=== PATIENT | female | born 1980 | race Caucasian/White ===

== ENCOUNTER 2022-10-05 00:06 | Emergency (ER) | payer OTHER, SELFPAY ==
[2022-10-05] VITALS (11 sets, daily range): BP systolic 156–173; BP diastolic 105–111; PULSE 82–99; RESP 18–20; TEMP 36.6–36.8; O2SAT 95–97; BMI 30.8
[2022-10-05] MEDS: OXYCODONE 5 MG TABLET PO (00:42)
--- NOTE | 2022-10-05 00:43 | ED.GENADULT ---
HPI - General Adult General Chief complaint: Sore Throat Stated complaint: Throat/neck pain Time Seen by Provider: 10/05/22 00:24 Source: patient Mode of arrival: ambulatory Limitations: no limitations History of Present Illness HPI narrative: 42-year-old female presents to the emergency department with a 4 day history of sore throat, loss of voice. No fever. Exposure to pneumonia in her son, he was diagnosed 10 days ago. No COVID, strep or other similar illness. She has been using Tylenol and ibuprofen with limited improvement in her symptoms, last being 4 hours ago. Pain is bilateral, symmetric. No hives or rash, no productive cough or upper respiratory symptoms. No GI or other systemic signs of illness. Notes swollen glands, painful to swallow but is still taking nutrition appropriately. Nursing notes reviewed. Has not tried any other interventions to help with symptoms. No blisters or ulcerations. She states that her past medical history is benign, no major long-term health problems. Surgical history notable for oophorectomy, hysterectomy. No long-term medications, no allergies. Socially she is nonsmoker with no pertinent travel. Family history notable for pneumonia in her child 10 days ago. ROS is notable for the generalized and HEENT symptoms as described above, otherwise denies times 12 systems Related Data Previous Rx's Medication Instructions Recorded prednisone 20 mg tablet 20 mg PO BID #6 tabs 10/05/22 PFSH PFSH Social History Smoking Status: Former smoker Do you use any of these nicotine containing products: None Second hand tobacco smoke exposure: No How often do you have a drink containing alcohol: 4 or more times a week How many standard drinks containing alcohol do you have on a typical day: 1 or 2 How often do you have six or more drinks on one occasion: Less than monthly AUDIT-C Alcohol total score: 5 Non-prescribed substance use: denies use Exam Const: Vital Signs, click to edit/add: Vital Signs - 24 hr 10/05/22 00:11 10/05/22 00:24 10/05/22 00:30 Temperature 98.3 F Pulse Rate 88 87 Pulse Rate [Left P ulse Oximeter] 99 Respiratory Rate 20 Blood Pressure Blood Pressure [Le ft Upper Arm] 173/111 H Pulse Oximetry 95 95 95 Oxygen Delivery Me thod Room Air 10/05/22 00:46 10/05/22 00:53 10/05/22 00:54 Temperature Pulse Rate 86 82 84 Pulse Rate [Left P ulse Oximeter] Respiratory Rate 18 Blood Pressure 157/109 H Blood Pressure [Le ft Upper Arm] Pulse Oximetry 96 96 96 Oxygen Delivery Me thod 10/05/22 01:00 10/05/22 01:01 10/05/22 01:15 Temperature Pulse Rate 84 84 84 Pulse Rate [Left P ulse Oximeter] Respiratory Rate Blood Pressure 156/105 H Blood Pressure [Le ft Upper Arm] Pulse Oximetry 97 96 96 Oxygen Delivery Me thod 10/05/22 01:30 Temperature Pulse Rate 86 Pulse Rate [Left P ulse Oximeter] Respiratory Rate Blood Pressure Blood Pressure [Le ft Upper Arm] Pulse Oximetry 97 Oxygen Delivery Me thod Documenting provider has reviewed patient's vital signs: yes Common normals: no apparent distress General appearance: comfortable and well kempt Other: Appears well-nourished, well-hydrated. Non diaphoretic. HENMT: Common normals: normocephalic, head/scalp atraumatic and TM's normal bilaterally Head and scalp: normocephalic and atraumatic Face and sinus: normal facial exam Tympanic membrane: TM's normal bilaterally Mouth: oral and palatal mucosa normal Throat: posterior oropharynx normal Other: No erythema or swelling to the posterior pharynx. Mild postnasal drip only. Eye: Common normals: conjunctivae normal General eye: normal appearance of both eyes Conjunctiva: conjunctiva(e) normal Other: Normal visual gaze and tracking. Neck & C-Spine: Other: Neck with normal range of motion. Moderate anterior cervical and submandibular lymphadenopathy. Resp: Common normals: normal respiratory effort and clear to auscultation bilaterally Effort & inspection: able to speak in complete sentences Auscultation: clear to auscultation bilaterally Cardio: Common normals: regular rate, regular rhythm, S1 normal heart sound, S2 normal heart sound, no murmurs and peripheral pulses 2+ throughout Rate: regular rate Rhythm: regular rhythm Heart sounds: S1 normal and S2 normal Peripheral pulses: pulses 2+ throughout Extremity: Common normals: normal capillary refill Neuro: Speech: speech normal Psych: Appearance: well kempt Attitude: calm and engaged Mood and affect: euthymic mood Insight: insight good Judgement: judgment good Skin: Common normals: no rashes or lesions noted General skin exam: no rashes or lesions noted Course Vital Signs Vital signs: Initial Vital Signs Temperature 98.3 F 10/05/22 00:11 Temperature Source Temporal Artery Scan 10/05/22 00:11 Pulse Rate 99 10/05/22 00:11 Pulse Rhythm 10/05/22 00:11 Respiratory Rate 20 10/05/22 00:11 Blood Pressure 173/111 H 10/05/22 00:11 Blood Pressure Mean 131 10/05/22 00:11 Blood Pressure Position Sitting 10/05/22 00:11 Pulse Oximetry 95 10/05/22 00:11 Oxygen Delivery Method 10/05/22 00:11 Vital Signs Temperature 98.3 F 10/05/22 00:11 Pulse Rate 99 10/05/22 00:11 Respiratory Rate 20 10/05/22 00:11 Blood Pressure 173/111 H 10/05/22 00:11 Pulse Oximetry 95 10/05/22 00:11 Oxygen Delivery Method 10/05/22 00:11 Temperature 98.3 F 10/05/22 00:11 Pulse Rate 86 10/05/22 01:30 Respiratory Rate 18 10/05/22 00:53 Blood Pressure 156/105 H 10/05/22 01:01 Pulse Oximetry 97 10/05/22 01:30 Oxygen Delivery Method 10/05/22 00:11 Medical Decision Making MDM Narrative Medical decision making narrative: No signs of airway swelling, dyspnea, redness, tonsillar enlargement, abscess, neck pain etc.. There are no signs of any severe features. Patient is swabbed for typical viral illnesses, strep and is given 5 mg of oxycodone. Update: Oxycodone did not significantly improve her symptoms. She is informed of her test results and is satisfied with knowing that there is not a simple treatment like antibiotics available. Suspect viral etiology. Discussed possibility of mono but at only day 4 of symptoms, testing is not typically recommended as false negatives are incredibly common. Recommended trial of prednisone 20 mg b.i.d. for 3 days. Prescription dispensed through [facility]. Discussed Tylenol, ibuprofen, miracle mouthwash, saltwater gargles. Alarm symptoms reviewed as indications to come back to ED. She verbalizes understanding and agreement Lab Data Lab results reviewed: Yes I reviewed the patient's lab results Labs: Lab Results 10/05/22 10/05/22 10/05/22 Range/Units 00:30 00:30 00:30 SARS-CoV-2 (PCR) Cancelled Negative SARS-CoV-2 Influenza Type A (PCR) Cancelled Negative PCR FLU A Influenza Type B (PCR) Cancelled Negative PCR FLU B RSV (PCR) Negative PCR RSV (Negative) Group A Strep DNA NOT DETECTED (Not Detectd) Discharge Plan Discharge Clinical Impression: Acute viral pharyngitis Patient Disposition: Home w/ Parent or Adult Condition: Stable Instructions: Pharyngitis (ED) Additional Instructions: There are no signs of any complications. Most likely this is a viral infection. As we discussed, you are negative for COVID, influenza, RSV and strep. This is what I expected based on your exam. This could be mono but as we discussed, testing this early in the illness is not typically helpful. If you are still very symptomatic in 3-4 days, I would make a clinic appointment to be re-evaluated in specifically tested for mono. Remember that there is no treatment for mono specifically but we would continue symptomatic treatment only. I will send a prescription for some prednisone to your pharmacy. Please pick this up and take it in the morning. Take this twice daily for 3 days, it should shorten the course of inflammation. I recommend taking it at 8:00 a.m. and 4:00 p.m.. Try not to take it to close to bedtime. You will have to extra days of therapy just in case her symptoms are not improving. Continue using Tylenol 1000 mg every 6 hours and or ibuprofen 600 mg every 6 hours. I strongly recommend saltwater gargles every 3 hours while awake. For pain control, I recommend 10 mL of each of Children's liquid Benadryl, tap water, ryder flavored Maalox. Gargle with this for as long as you can stand and then swallow. It has an excellent anti-inflammatory effect on the throat as well. If any severe shortness of breath occurs or focal, unilateral pain, seek re-evaluation. Symptoms do tend to last about 2 weeks total. Activity Level: No Restrictions Discharge Diet: Regular Prescriptions: New prednisone 20 mg tablet 20 mg PO BID Qty: 6 0RF Rx Instructions: Daily at 8-9:00 a.m. and 4:00 p.m. Follow Up/Referrals: Noemí Bejarano MD [Primary Care Provider] - Stand Alone Forms: [employer] Info Instructions
[2022-10-05 01:02] LABS: Strep A DNA Probe* NOT DETECTED (Not Detectd)
[2022-10-05 01:14] LABS: PCR FLU A Negative PCR FLU A (Negative); PCR FLU B Negative PCR FLU B (Negative); PCR RSV Negative PCR RSV (Negative); SARS PCR* Negative SARS-CoV-2 (Negative)
== END 2022-10-05 01:49 | disposition home or self-care (01) ==
PROVIDERS: Emergency Provider Family Medicine; PCP Internal Medicine
DX: J02.9 Acute pharyngitis, unspecified (principal)
CPT/HCPCS: 87502; 87631; 87634; 87635; 87651; 99282; 99283; A9270

== ENCOUNTER 2023-09-06 07:48 | Outpatient (CLI) | payer OTHER, SELFPAY | END 2023-09-06 07:49 | disposition home or self-care (01) | PROVIDERS: PCP Internal Medicine; Referring Provider Internal Medicine; Visit Provider Registered Nurse | DX: Z13.220 Encounter for screening for lipoid disorders (principal) | CPT/HCPCS: 80061 ==

== ENCOUNTER 2023-11-01 08:57 | Outpatient (CLI) | payer OTHER, SELFPAY ==
--- NOTE | 2023-11-01 09:15 | MM_ITS ---
Patient: ÓSCAR TIWARI Facility:?[facility] Patient ID:?[id number] Site Patient ID:?[id number]. Site :?1980 Study:?XRay-Breast Bilateral 3D W/CAD-11/01/2023 9:27:02 AM Ordering Physician:Monika Final Report: BILATERAL DIGITAL SCREENING MAMMOGRAM WITH TOMOSYNTHESIS AND COMPUTER-AIDED DETECTION CLINICAL HISTORY: Routine screening exam. COMPARISON: None. TECHNIQUE: Digital mammogram in CC and MLO projections including computer-aided detection (CAD). Tomosynthesis utilized. BREAST COMPOSITION: There are areas of scattered fibroglandular density. FINDINGS: RIGHT Breast: No suspicious findings. LEFT Breast: Focal asymmetric density lateral left breast 11 cm from the nipple. IMPRESSION: LEFT breast asymmetry/mass. RECOMMENDATIONS: Additional mammographic views of the LEFT breast including 3D spot compression CC/MLO. LEFT breast ultrasound may also be required. BI-RADS Category 0: Incomplete: Need Additional Imaging Evaluation and/or Prior Mammograms for Comparison [facility] will contact the patient for follow-up. A lay language report of this examination will be provided to the patient. Dictated by Cristiano Luciano MD @ 11/02/2023 12:19:07 PM madelinej/Dictated by: Cristiano Luciano MD @ 11/02/2023 12:19:00 PM Signed by:?Cristiano Luciano MD @11/02/2023 1:01:23 PM (Electronic Signature)
== END 2023-11-01 08:58 | disposition home or self-care (01) ==
LOC: MAMMO 08:58
PROVIDERS: PCP Internal Medicine; Visit Provider Registered Nurse
DX: Z12.31 Encounter for screening mammogram for malignant neoplasm of breast (principal); N63.20 Unspecified lump in the left breast, unspecified quadrant
CPT/HCPCS: 77063; 77067

== ENCOUNTER 2023-11-10 08:27 | Outpatient (CLI) | payer OTHER, SELFPAY ==
--- NOTE | 2023-11-10 08:45 | MM_ITS ---
Patient: ÓSCAR TIWARI Facility:?[facility] Patient ID:?[id number] Site Patient ID:?[id number]. Site :?1980 Study:?XRay-Breast Left 3D W/CAD-11/10/2023 9:29:59 AM Ordering Physician:Noemí Harris Final Report: DIGITAL DIAGNOSTIC LEFT MAMMOGRAM PERFORMED USING TOMOSYNTHESIS AND COMPUTER- AIDED DETECTION LEFT BREAST ULTRASOUND CLINICAL HISTORY: LEFT breast mass/asymmetry. COMPARISON: 11/01/2023. TECHNIQUE: Digital LEFT mammogram in two projections. Tomosynthesis and CAD utilized. Real-time ultrasound imaging of LEFT breast with imaging documentation. BREAST COMPOSITION: There are areas of scattered fibroglandular density. FINDINGS: 3D spot compression CC/MLO LEFT breast mammogram images submitted. Decreased conspicuity of previously noted asymmetric density. No architectural distortion or suspicious calcifications. Targeted LEFT breast ultrasound performed at 3 o`clock 11 cm from the nipple. Normal fibroglandular tissue is present. No suspicious mass or fibrocystic change. IMPRESSION: No evidence of malignancy. RECOMMENDATIONS: Annual BILATERAL screening mammography. Results and recommendations discussed with the patient. BI-RADS Category 2: Benign A lay language report of this examination will be provided to the patient. Dictated by Cristiano Luciano MD @ 11/10/2023 11:41:40 AM jj/Dictated by: Cristiano Luciano MD @ 11/10/2023 11:41:00 AM Signed by:?Cristiano Luciano MD @11/10/2023 2:42:48 PM (Electronic Signature)
--- NOTE | 2023-11-10 09:15 | US_ITS ---
Patient: ÓSCAR TIWARI Facility:?[facility] Patient ID:?[id number] Site Patient ID:?[id number]. Site :?1980 Study:?US-Breast Left -11/10/2023 9:14:23 AM Ordering Physician:ALDO Final Report: PLEASE SEE DIGITAL DIAGNOSTIC LEFT MAMMOGRAM PERFORMED SAME DAY CRL:kae pal/Dictated by: Cristiano Luciano MD @ 11/10/2023 11:41:00 AM Signed by:?Cristiano Luciano MD @11/10/2023 2:42:45 PM (Electronic Signature)
== END 2023-11-10 08:28 | disposition home or self-care (01) ==
LOC: MAMMO 08:28
PROVIDERS: PCP Internal Medicine; Visit Provider Internal Medicine
DX: N63.20 Unspecified lump in the left breast, unspecified quadrant (principal); R92.8 Other abnormal and inconclusive findings on diagnostic imaging of breast
CPT/HCPCS: 76642; 77065; G0279

== ENCOUNTER 2024-03-02 11:24 | Outpatient (CLI) | payer OTHER, SELFPAY | END 2024-03-02 11:25 | disposition home or self-care (01) | LOC: NFLDREF 16:11 | PROVIDERS: PCP Internal Medicine; Visit Provider Internal Medicine | DX: I10 Essential (primary) hypertension (principal) | CPT/HCPCS: 80048 ==

== ENCOUNTER 2024-11-10 08:59 | Outpatient (CLI) | payer OTHER, SELFPAY ==
--- NOTE | 2024-11-10 09:15 | CRLHL7_ITS ---
For Patients: As a result of the Century Cures Act, medical imaging exams and procedure reports are released immediately into your electronic medical record. You may view this report before your referring provider. If you have questions, please contact your health care provider. BILATERAL SCREENING MAMMOGRAM WITH COMPUTER-AIDED DETECTION AND TOMOSYNTHESIS TECHNIQUE: CC and MLO views were obtained. These mammographic images have been obtained using full-field digital technique. These mammographic images were interpreted with the benefit of computer-aided detection. Breast Tomosynthesis was used in this interpretation. COMPARISON FILM: 11/01/23, 11/10/23(LT ONLY). FINDINGS: There are scattered areas of fibroglandular density. IMPRESSION: There is no radiographic evidence for malignancy. ASSESSMENT: BI-RADS Category 1: Negative RECOMMENDATION: Routine screening mammogram in 1 year. A lay language report of this examination will be provided to the patient. Cristiano Luciano M.D. Diagnostic Radiologist [email or web address] SP/Dictated by: Cristiano Luciano MD @ 11/10/2024 12:52:00 PM (Electronically Signed)
== END 2024-11-10 09:00 | disposition home or self-care (01) ==
LOC: MAMMO 09:00
PROVIDERS: PCP Internal Medicine; Visit Provider Internal Medicine
DX: Z12.31 Encounter for screening mammogram for malignant neoplasm of breast (principal)
CPT/HCPCS: 77063; 77067